=== PATIENT | male | born 1970 | race Caucasian/White ===

== ENCOUNTER 2017-05-04 16:43 | Inpatient (IN) | payer MEDICARE, OTHER ==
[2017-05-04] MEDS ORDERED: ONDANSETRON 4 MG INJ (17:18)
[2017-05-04] MEDS ORDERED: morphine 4 MG/ML VIAL (17:18)
[2017-05-04] MEDS: SODIUM CHLORIDE 0.9% 1L BAG IV* (17:19)
[2017-05-04] MEDS: CEFEPIME 2GM/50 ML (PMX) 50 ML IVPB (17:19)
[2017-05-04] MEDS: morphine 4 MG/ML VIAL IV (17:20)
[2017-05-04] MEDS: ACETAMINOPHEN 500 MG TAB PO (17:21)
[2017-05-04 17:25] LABS: ADD MAN DIFF? NO
[2017-05-04 17:28] LABS: WHITE BLOOD COUNT 23.1 10^3/ul (4.8-10.8)
[2017-05-04 17:28] LABS: ABNORMAL IP MESSAGE 1; BASOPHIL # 0.1 10^3/ul (0.0-0.1); BASOPHILS % 0.3 % (0.0-2.0); EOSINOPHILS # 0.1 10^3/ul (0.0-0.5); EOSINOPHILS % 0.3 % (0.0-7.0); HEMATOCRIT 44.6 % (42.0-52.0); HEMOGLOBIN 15.3 g/dl (14.0-18.0); LYMPHOCYTES # 2.9 10^3/ul (0.8-2.9); LYMPHOCYTES % 12.6 % (15.0-51.0); MEAN CORPUSCULAR HEMOGLOBIN 29.6 pg (29.0-33.0); MEAN CORPUSCULAR HGB CONC 34.3 g/dl (32.0-37.0); MEAN CORPUSCULAR VOLUME 86.3 fl (82.0-101.0); MEAN PLATELET VOLUME 10.9 fl (7.4-10.4); MONOCYTE # 1.7 10^3/ul (0.3-0.9); MONOCYTES % 7.3 % (0.0-11.0); NEUTROPHIL # 18.3 10^3/ul (1.6-7.5); NEUTROPHILS % 79.1 % (39.0-77.0); PLATELET COUNT 290 10^3/UL (140-415); POSITIVE DIFF @See below; RED BLOOD COUNT 5.17 10^6/ul (4.70-6.10); RED CELL DISTRIBUTION WIDTH 15.4 % (11.5-14.5)
[2017-05-04 17:46] LABS: ADD UMIC YES; UR ASCORBIC ACID NEGATIVE (NEGATIVE); UR BACTERIA FEW /HPF (NONE SEEN); UR BILIRUBIN (Dip) NEGATIVE (NEGATIVE); UR BLOOD (Dip) NEGATIVE (NEGATIVE); UR CLARITY CLEAR (CLEAR); UR COLOR YELLOW (YELLOW); UR GLUCOSE (Dip) NEGATIVE (NEGATIVE); UR KETONES (Dip) NEGATIVE (NEGATIVE); UR LEUKOCYTE ESTERASE (Dip) TRACE Leu/ul (NEGATIVE); UR MUCUS FEW /HPF (NONE SEEN); UR NITRITE (Dip) NEGATIVE (NEGATIVE); UR RBC 8 /HPF (0-5); UR SPECIFIC GRAVITY (Dip) 1.016 (1.003-1.030); UR TOTAL PROTEIN (Dip) 1+ mg/dl (NEGATIVE); UR UROBILINOGEN (Dip) 1+ mg/dL (NEGATIVE); UR WBC 26 /HPF (0-5)
[2017-05-04 17:57] LABS: ALANINE AMINOTRANSFERASE 56 IU/L (13-69); ALBUMIN 4.5 g/dl (3.3-4.9); ALBUMIN/GLOBULIN RATIO 1.09; ALKALINE PHOSPHATASE 108 IU/L (42-121); ANION GAP 22 (8-16); ASPARTATE AMINO TRANSFERASE 36 IU/L (15-46); BILIRUBIN,INDIRECT 0.4 mg/dl (0-1.1); BILIRUBIN,TOTAL 0.4 mg/dl (0.2-1.3); BLOOD UREA NITROGEN 10 mg/dl (7-20); CALCIUM 9.7 mg/dl (8.4-10.2); CARBON DIOXIDE 25 mmol/L (21-31); CHLORIDE 99 mmol/L (97-110); CREATININE 0.55 mg/dl (0.61-1.24); GLUCOSE 182 mg/dl (70-220); POTASSIUM 4.1 mmol/L (3.5-5.1); SODIUM 142 mmol/L (135-144); TOTAL PROTEIN 8.6 g/dl (6.1-8.1)
[2017-05-04 18:05] LABS: INR 2.04; PROTIME 23.5 Sec (11.9-14.9); PT RATIO 1.8
[2017-05-04 18:06] LABS: PARTIAL THROMBOPLASTIN TIME 43.9 Sec (25.0-35.0)
[2017-05-04 18:06] LABS: LACTIC ACID 4.4 mmol/L (0.5-2.0)
[2017-05-04 18:09] LABS: TROPONIN-I < 0.012 ng/ml (0.00-0.12)
[2017-05-04 19:37] LABS: LACTIC ACID 2.2 mmol/L (0.5-2.0)
[2017-05-04] MEDS: KETOROLAC 30 MG INJ IV (20:15)
[2017-05-04] MEDS: ASPIRIN 81 MG TAB PO (20:34)
[2017-05-04] MEDS ORDERED: ACETAMINOPHEN 325 MG TAB PO (21:30)
[2017-05-04] MEDS ORDERED: ONDANSETRON 4 MG INJ IV (21:30)
[2017-05-04 22:29] LABS: LACTIC ACID 2.4 mmol/L (0.5-2.0)
[2017-05-05] MEDS ORDERED: ZOLPIDEM 5 MG TAB PO (02:30)
[2017-05-05] MEDS ORDERED: ACETAMINOPHEN 325 MG TAB PO (02:30)
[2017-05-05] MEDS ORDERED: morphine 2 MG INJ (02:58)
[2017-05-05] MEDS: morphine 2 MG INJ IV ×7 (03:02→23:41)
[2017-05-05] MEDS: SOD CHLORIDE 0.9% 1,000 ML IV ×2 (03:08→23:00)
[2017-05-05] MEDS ORDERED: GLUCAGON 1 MG INJ IM (03:30)
[2017-05-05] MEDS ORDERED: DEXTROSE 50% 50 ML SYRINGE IV ×2 (03:30)
[2017-05-05] MEDS ORDERED: GLUCOSE GEL 15 GRAM TUBE BUCCAL (03:30)
[2017-05-05] MEDS ORDERED: GLUCOSE GEL 15 GRAM TUBE PO ×2 (03:30)
[2017-05-05 04:58] LABS: ADD MAN DIFF? NO
[2017-05-05 05:00] LABS: ABNORMAL IP MESSAGE 1; BASOPHIL # 0.1 10^3/ul (0.0-0.1); BASOPHILS % 0.4 % (0.0-2.0); EOSINOPHILS # 0.1 10^3/ul (0.0-0.5); EOSINOPHILS % 0.2 % (0.0-7.0); HEMATOCRIT 39.8 % (42.0-52.0); HEMOGLOBIN 13.6 g/dl (14.0-18.0); LYMPHOCYTES # 5.7 10^3/ul (0.8-2.9); LYMPHOCYTES % 21.1 % (15.0-51.0); MEAN CORPUSCULAR HEMOGLOBIN 29.5 pg (29.0-33.0); MEAN CORPUSCULAR HGB CONC 34.2 g/dl (32.0-37.0); MEAN CORPUSCULAR VOLUME 86.3 fl (82.0-101.0); MEAN PLATELET VOLUME 10.9 fl (7.4-10.4); MONOCYTE # 2.6 10^3/ul (0.3-0.9); MONOCYTES % 9.7 % (0.0-11.0); NEUTROPHIL # 18.3 10^3/ul (1.6-7.5); NEUTROPHILS % 68.1 % (39.0-77.0); PLATELET COUNT 253 10^3/UL (140-415); POSITIVE DIFF @See below; RED BLOOD COUNT 4.61 10^6/ul (4.70-6.10); RED CELL DISTRIBUTION WIDTH 15.7 % (11.5-14.5)
[2017-05-05 05:00] LABS: WHITE BLOOD COUNT 26.8 10^3/ul (4.8-10.8)
[2017-05-05 06:07] LABS: ANION GAP 15 (8-16); BLOOD UREA NITROGEN 11 mg/dl (7-20); CALCIUM 8.5 mg/dl (8.4-10.2); CARBON DIOXIDE 25 mmol/L (21-31); CHLORIDE 106 mmol/L (97-110); CREATININE 0.55 mg/dl (0.61-1.24); GLUCOSE 136 mg/dl (70-220); POTASSIUM 3.8 mmol/L (3.5-5.1); SODIUM 142 mmol/L (135-144)
[2017-05-05] MEDS ORDERED: DOCUSATE SODIUM 100 MG CAP PO (07:00)
[2017-05-05 07:58] LABS: HEMOGLOBIN A1C 6.5 % (0-5.9)
[2017-05-05] MEDS: INSULIN ASPART [NOVOLOG] 3 ML PEN SC ×4 (08:00→20:38)
[2017-05-05] MEDS: GABAPENTIN 400 MG CAP PO ×4 (08:57→20:34)
[2017-05-05] MEDS: CEFEPIME 1GM/50 ML (PMX) 50 ML IVPB ×2 (08:57→20:33)
[2017-05-05] MEDS: ENOXAPARIN 40 MG/0.4 ML SYG SC (08:58)
[2017-05-05] MEDS: ATORVASTATIN 20 MG TAB PO (20:34)
[2017-05-06] MEDS: ACCU-CHEK XX ×2 (02:00)
[2017-05-06] MEDS: PANTOPRAZOLE (EC) 40 MG TAB PO (05:40)
[2017-05-06 06:02] LABS: ABNORMAL IP MESSAGE 1; ADD MAN DIFF? NO; BASOPHIL # 0.1 10^3/ul (0.0-0.1); BASOPHILS % 0.5 % (0.0-2.0); EOSINOPHILS # 0.3 10^3/ul (0.0-0.5); EOSINOPHILS % 2.3 % (0.0-7.0); HEMATOCRIT 42.6 % (42.0-52.0); HEMOGLOBIN 14.2 g/dl (14.0-18.0); LYMPHOCYTES # 5.1 10^3/ul (0.8-2.9); LYMPHOCYTES % 35.1 % (15.0-51.0); MEAN CORPUSCULAR HEMOGLOBIN 29.8 pg (29.0-33.0); MEAN CORPUSCULAR HGB CONC 33.3 g/dl (32.0-37.0); MEAN CORPUSCULAR VOLUME 89.3 fl (82.0-101.0); MEAN PLATELET VOLUME 11.4 fl (7.4-10.4); MONOCYTES % 13.6 % (0.0-11.0); NEUTROPHILS % 48.3 % (39.0-77.0); PLATELET COUNT 266 10^3/UL (140-415); POSITIVE DIFF @See below; RED BLOOD COUNT 4.77 10^6/ul (4.70-6.10); RED CELL DISTRIBUTION WIDTH 15.8 % (11.5-14.5)
[2017-05-06 06:02] LABS: WHITE BLOOD COUNT 14.6 10^3/ul (4.8-10.8)
[2017-05-06] MEDS: morphine 2 MG INJ IV ×2 (06:17→12:17)
[2017-05-06 07:17] LABS: ANION GAP 16 (8-16); BLOOD UREA NITROGEN 10 mg/dl (7-20); CALCIUM 8.9 mg/dl (8.4-10.2); CARBON DIOXIDE 28 mmol/L (21-31); CHLORIDE 106 mmol/L (97-110); CREATININE 0.58 mg/dl (0.61-1.24); GLUCOSE 122 mg/dl (70-220); POTASSIUM 4.2 mmol/L (3.5-5.1); SODIUM 146 mmol/L (135-144)
[2017-05-06] MEDS: INSULIN ASPART [NOVOLOG] 3 ML PEN SC ×4 (08:00→20:41)
[2017-05-06] MEDS: GABAPENTIN 400 MG CAP PO ×4 (09:02→20:37)
[2017-05-06] MEDS: DOCUSATE SODIUM 100 MG CAP PO ×2 (09:02→20:37)
[2017-05-06] MEDS: ENOXAPARIN 40 MG/0.4 ML SYG SC (09:03)
[2017-05-06] MEDS: CEFEPIME 1GM/50 ML (PMX) 50 ML IVPB (09:03)
[2017-05-06 09:42] LABS: HEMOGLOBIN A1C 6.1 % (0-5.9)
[2017-05-06] MEDS: SOD CHLORIDE 0.9% 1,000 ML IV ×2 (11:50→15:43)
[2017-05-06] MEDS: CEFTRIAXONE 1 GM/50 ML (PMX) 50 ML IVPB (17:25)
[2017-05-06] MEDS: morphine LIQ (10 MG/5 ML) CUP PO (18:37)
[2017-05-06] MEDS: ATORVASTATIN 20 MG TAB PO (20:37)
[2017-05-07] MEDS: morphine LIQ (10 MG/5 ML) CUP PO ×5 (00:10→21:01)
[2017-05-07] MEDS: ACCU-CHEK XX ×2 (02:00)
[2017-05-07] MEDS: PANTOPRAZOLE (EC) 40 MG TAB PO (05:57)
[2017-05-07 06:02] LABS: ADD MAN DIFF? NO
[2017-05-07 06:19] LABS: ABNORMAL IP MESSAGE 1; BASOPHIL # 0.1 10^3/ul (0.0-0.1); BASOPHILS % 0.5 % (0.0-2.0); EOSINOPHILS # 0.4 10^3/ul (0.0-0.5); EOSINOPHILS % 3.4 % (0.0-7.0); HEMATOCRIT 42.9 % (42.0-52.0); HEMOGLOBIN 14.3 g/dl (14.0-18.0); LYMPHOCYTES # 4.9 10^3/ul (0.8-2.9); MEAN CORPUSCULAR HEMOGLOBIN 29.7 pg (29.0-33.0); MEAN CORPUSCULAR HGB CONC 33.3 g/dl (32.0-37.0); MEAN PLATELET VOLUME 11.1 fl (7.4-10.4); MONOCYTE # 1.6 10^3/ul (0.3-0.9); NEUTROPHIL # 5.2 10^3/ul (1.6-7.5); NEUTROPHILS % 42.9 % (39.0-77.0); PLATELET COUNT 298 10^3/UL (140-415); POSITIVE DIFF @See below; RED BLOOD COUNT 4.82 10^6/ul (4.70-6.10); RED CELL DISTRIBUTION WIDTH 15.9 % (11.5-14.5)
[2017-05-07 06:19] LABS: WHITE BLOOD COUNT 12.2 10^3/ul (4.8-10.8)
[2017-05-07 06:51] LABS: ANION GAP 16 (8-16); BLOOD UREA NITROGEN 9 mg/dl (7-20); CARBON DIOXIDE 29 mmol/L (21-31); CHLORIDE 103 mmol/L (97-110); CREATININE 0.58 mg/dl (0.61-1.24); GLUCOSE 122 mg/dl (70-220); POTASSIUM 3.9 mmol/L (3.5-5.1); SODIUM 144 mmol/L (135-144)
[2017-05-07] MEDS: INSULIN ASPART [NOVOLOG] 3 ML PEN SC ×4 (07:55→21:00)
[2017-05-07] MEDS: GABAPENTIN 400 MG CAP PO ×4 (08:32→21:03)
[2017-05-07] MEDS: DOCUSATE SODIUM 100 MG CAP PO ×2 (08:32→21:02)
[2017-05-07] MEDS: ENOXAPARIN 40 MG/0.4 ML SYG SC (08:33)
[2017-05-07] MEDS: SOD CHLORIDE 0.9% 1,000 ML IV (10:36)
[2017-05-07] MEDS: CEFTRIAXONE 1 GM/50 ML (PMX) 50 ML IVPB (16:00)
[2017-05-07] MEDS: MAGNESIUM HYDROXIDE 30ML CUP PO (17:59)
[2017-05-07] MEDS: ATORVASTATIN 20 MG TAB PO (21:03)
[2017-05-08] MEDS: ACCU-CHEK XX ×2 (02:00)
[2017-05-08] MEDS: morphine LIQ (10 MG/5 ML) CUP PO ×5 (02:11→20:54)
[2017-05-08] MEDS: MAGNESIUM HYDROXIDE 30ML CUP PO (05:15)
[2017-05-08] MEDS: SOD CHLORIDE 0.9% 1,000 ML IV (05:15)
[2017-05-08] MEDS: PANTOPRAZOLE (EC) 40 MG TAB PO (05:15)
[2017-05-08 05:53] LABS: ADD MAN DIFF? NO
[2017-05-08 05:57] LABS: BASOPHIL # 0.1 10^3/ul (0.0-0.1); BASOPHILS % 0.6 % (0.0-2.0); EOSINOPHILS # 0.4 10^3/ul (0.0-0.5); EOSINOPHILS % 3.8 % (0.0-7.0); HEMATOCRIT 44.4 % (42.0-52.0); LYMPHOCYTES # 4.4 10^3/ul (0.8-2.9); LYMPHOCYTES % 44.6 % (15.0-51.0); MEAN CORPUSCULAR HEMOGLOBIN 29.5 pg (29.0-33.0); MEAN CORPUSCULAR HGB CONC 33.8 g/dl (32.0-37.0); MEAN CORPUSCULAR VOLUME 87.4 fl (82.0-101.0); MEAN PLATELET VOLUME 11.1 fl (7.4-10.4); MONOCYTES % 10.3 % (0.0-11.0); NEUTROPHILS % 40.6 % (39.0-77.0); PLATELET COUNT 329 10^3/UL (140-415); RED BLOOD COUNT 5.08 10^6/ul (4.70-6.10); RED CELL DISTRIBUTION WIDTH 15.5 % (11.5-14.5)
[2017-05-08 06:48] LABS: ANION GAP 17 (8-16); BLOOD UREA NITROGEN 11 mg/dl (7-20); CALCIUM 9.2 mg/dl (8.4-10.2); CARBON DIOXIDE 29 mmol/L (21-31); CHLORIDE 102 mmol/L (97-110); CREATININE 0.56 mg/dl (0.61-1.24); GLUCOSE 125 mg/dl (70-220); POTASSIUM 4.2 mmol/L (3.5-5.1); SODIUM 144 mmol/L (135-144)
[2017-05-08] MEDS: INSULIN ASPART [NOVOLOG] 3 ML PEN SC ×4 (08:00→21:00)
[2017-05-08] MEDS: GABAPENTIN 400 MG CAP PO ×4 (08:44→20:54)
[2017-05-08] MEDS: DOCUSATE SODIUM 100 MG CAP PO ×2 (08:44→20:54)
[2017-05-08] MEDS: ENOXAPARIN 40 MG/0.4 ML SYG SC (08:45)
[2017-05-08] MEDS: CEFTRIAXONE 1 GM/50 ML (PMX) 50 ML IVPB (16:37)
[2017-05-08] MEDS: ATORVASTATIN 20 MG TAB PO (20:54)
[2017-05-09] MEDS: ACCU-CHEK XX ×2 (02:00)
[2017-05-09] MEDS: SOD CHLORIDE 0.9% 1,000 ML IV (03:28)
[2017-05-09] MEDS: PANTOPRAZOLE (EC) 40 MG TAB PO (05:29)
[2017-05-09 07:14] LABS: ADD MAN DIFF? NO
[2017-05-09 07:24] LABS: BASOPHIL # 0.1 10^3/ul (0.0-0.1); BASOPHILS % 0.6 % (0.0-2.0); EOSINOPHILS # 0.5 10^3/ul (0.0-0.5); EOSINOPHILS % 5.8 % (0.0-7.0); HEMATOCRIT 46.1 % (42.0-52.0); HEMOGLOBIN 15.5 g/dl (14.0-18.0); LYMPHOCYTES # 4.2 10^3/ul (0.8-2.9); LYMPHOCYTES % 49.4 % (15.0-51.0); MEAN CORPUSCULAR HEMOGLOBIN 29.4 pg (29.0-33.0); MEAN CORPUSCULAR HGB CONC 33.6 g/dl (32.0-37.0); MEAN CORPUSCULAR VOLUME 87.5 fl (82.0-101.0); MEAN PLATELET VOLUME 11.5 fl (7.4-10.4); MONOCYTES % 11.9 % (0.0-11.0); NEUTROPHIL # 2.7 10^3/ul (1.6-7.5); NEUTROPHILS % 32.1 % (39.0-77.0); PLATELET COUNT 302 10^3/UL (140-415); RED BLOOD COUNT 5.27 10^6/ul (4.70-6.10)
[2017-05-09 07:24] LABS: WHITE BLOOD COUNT 8.4 10^3/ul (4.8-10.8)
[2017-05-09 07:54] LABS: ANION GAP 19 (8-16); BLOOD UREA NITROGEN 14 mg/dl (7-20); CALCIUM 9.1 mg/dl (8.4-10.2); CARBON DIOXIDE 22 mmol/L (21-31); CHLORIDE 105 mmol/L (97-110); CREATININE 0.51 mg/dl (0.61-1.24); GLUCOSE 112 mg/dl (70-220); SODIUM 141 mmol/L (135-144)
[2017-05-09] MEDS: INSULIN ASPART [NOVOLOG] 3 ML PEN SC ×4 (08:00→21:00)
[2017-05-09] MEDS: DOCUSATE SODIUM 100 MG CAP PO ×2 (09:07→20:05)
[2017-05-09] MEDS: ENOXAPARIN 40 MG/0.4 ML SYG SC (09:07)
[2017-05-09] MEDS: GABAPENTIN 400 MG CAP PO ×4 (09:07→20:05)
[2017-05-09] MEDS: morphine LIQ (10 MG/5 ML) CUP PO ×3 (09:10→20:05)
[2017-05-09] MEDS: CEFTRIAXONE 1 GM/50 ML (PMX) 50 ML IVPB (17:33)
[2017-05-09] MEDS: ATORVASTATIN 20 MG TAB PO (20:05)
[2017-05-10] MEDS: ACCU-CHEK XX ×2 (02:00)
[2017-05-10] MEDS: morphine LIQ (10 MG/5 ML) CUP PO ×3 (03:26→14:31)
[2017-05-10] MEDS: PANTOPRAZOLE (EC) 40 MG TAB PO (05:45)
[2017-05-10] MEDS: SOD CHLORIDE 0.9% 1,000 ML IV ×2 (05:45→15:50)
[2017-05-10] MEDS: INSULIN ASPART [NOVOLOG] 3 ML PEN SC ×3 (07:57→17:20)
[2017-05-10] MEDS: GABAPENTIN 400 MG CAP PO ×3 (08:47→17:21)
[2017-05-10] MEDS: ENOXAPARIN 40 MG/0.4 ML SYG SC (08:47)
[2017-05-10] MEDS: DOCUSATE SODIUM 100 MG CAP PO (08:47)
[2017-05-10] MEDS: CEFTRIAXONE 1 GM/50 ML (PMX) 50 ML IVPB (17:21)
== END 2017-05-10 18:46 | disposition home or self-care (01) | DRG 872 ==
LOC: PP2 05-09 18:31 → E/R 16:43 → PP2 21:15
DX: A41.9 Sepsis, unspecified organism (principal); G82.20 Paraplegia, unspecified; N39.0 Urinary tract infection, site not specified; N31.9 Neuromuscular dysfunction of bladder, unspecified; E11.9 Type 2 diabetes mellitus without complications; B96.20 Unspecified Escherichia coli [E. coli] as the cause of diseases classified elsewhere; Z86.718 Personal history of other venous thrombosis and embolism; E86.0 Dehydration
CPT/HCPCS: 36415; 71045; 71250; 80048; 80053; 81001; 82962; 83036; 83605; 84484; 85025; 85610; 85730; 87040; 87086; 93005; 96374; 96375; 99291-25

== ENCOUNTER 2017-11-29 17:29 | Inpatient (IN) | payer MEDICARE, OTHER ==
[2017-11-29] MEDS ORDERED: CEFTRIAXONE 1 GM/50 ML (PMX) 50 ML IVPB (18:08)
[2017-11-29] MEDS ORDERED: ACETAMINOPHEN 325 MG TAB (18:17)
[2017-11-29] MEDS ORDERED: KETOROLAC 15 MG INJ (18:17)
[2017-11-29 18:30] LABS: ADD UMIC YES; UR ASCORBIC ACID NEGATIVE (NEGATIVE); UR BACTERIA FEW /HPF (NONE SEEN); UR BILIRUBIN (Dip) NEGATIVE (NEGATIVE); UR BLOOD (Dip) NEGATIVE (NEGATIVE); UR CLARITY CLEAR (CLEAR); UR COLOR STRAW (YELLOW); UR GLUCOSE (Dip) NEGATIVE (NEGATIVE); UR KETONES (Dip) NEGATIVE (NEGATIVE); UR LEUKOCYTE ESTERASE (Dip) 1+ Leu/ul (NEGATIVE); UR NITRITE (Dip) NEGATIVE (NEGATIVE); UR RBC 1 /HPF (0-5); UR SPECIFIC GRAVITY (Dip) 1.011 (1.003-1.030); UR TOTAL PROTEIN (Dip) NEGATIVE (NEGATIVE); UR UROBILINOGEN (Dip) NEGATIVE (NEGATIVE); UR WBC 56 /HPF (0-5)
[2017-11-29] MEDS: SODIUM CHLORIDE 0.9% 1L BAG IV* (18:32)
[2017-11-29] MEDS: KETOROLAC 15 MG INJ IV (18:33)
[2017-11-29 18:55] LABS: ADD MAN DIFF? NO
[2017-11-29] MEDS: ACETAMINOPHEN 500 MG TAB PO (18:56)
[2017-11-29 19:01] LABS: WHITE BLOOD COUNT 22.6 10^3/ul (4.8-10.8)
[2017-11-29 19:01] LABS: ABNORMAL IP MESSAGE 1; BASOPHIL # 0.1 10^3/ul (0.0-0.1); BASOPHILS % 0.3 % (0.0-2.0); EOSINOPHILS # 0.1 10^3/ul (0.0-0.5); EOSINOPHILS % 0.4 % (0.0-7.0); HEMATOCRIT 43.9 % (42.0-52.0); HEMOGLOBIN 14.3 g/dl (14.0-18.0); LYMPHOCYTES # 4.5 10^3/ul (0.8-2.9); LYMPHOCYTES % 19.7 % (15.0-51.0); MEAN CORPUSCULAR HEMOGLOBIN 28.7 pg (29.0-33.0); MEAN CORPUSCULAR HGB CONC 32.6 g/dl (32.0-37.0); MEAN CORPUSCULAR VOLUME 88.2 fl (82.0-101.0); MEAN PLATELET VOLUME 10.9 fl (7.4-10.4); MONOCYTES % 8.9 % (0.0-11.0); NEUTROPHIL # 15.8 10^3/ul (1.6-7.5); NEUTROPHILS % 70.3 % (39.0-77.0); PLATELET COUNT 312 10^3/UL (140-415); RED BLOOD COUNT 4.98 10^6/ul (4.70-6.10); RED CELL DISTRIBUTION WIDTH 15.9 % (11.5-14.5)
[2017-11-29 19:16] LABS: INR 1.02; PROTIME 13.5 Sec (11.9-14.9); PT RATIO 1.1
[2017-11-29 19:17] LABS: ALANINE AMINOTRANSFERASE 47 IU/L (13-69); ALBUMIN 4.2 g/dl (3.3-4.9); ALBUMIN/GLOBULIN RATIO 0.95; ALKALINE PHOSPHATASE 101 IU/L (42-121); ANION GAP 13 (8-16); ASPARTATE AMINO TRANSFERASE 34 IU/L (15-46); BILIRUBIN,INDIRECT 0.4 mg/dl (0-1.1); BILIRUBIN,TOTAL 0.4 mg/dl (0.2-1.3); BLOOD UREA NITROGEN 12 mg/dl (7-20); CALCIUM 9.3 mg/dl (8.4-10.2); CARBON DIOXIDE 28 mmol/L (21-31); CHLORIDE 102 mmol/L (97-110); CREATININE 0.55 mg/dl (0.61-1.24); GLUCOSE 100 mg/dl (70-220); LIPASE 66 U/L (23-300); PARTIAL THROMBOPLASTIN TIME 34.1 Sec (25.0-35.0); POTASSIUM 3.9 mmol/L (3.5-5.1); SODIUM 139 mmol/L (135-144); TOTAL PROTEIN 8.6 g/dl (6.1-8.1)
[2017-11-29 19:21] LABS: LACTIC ACID 1.4 mmol/L (0.5-2.0)
[2017-11-29] MEDS: ONDANSETRON 4 MG INJ IV (19:27)
[2017-11-29] MEDS: morphine 4 MG/ML VIAL IV (19:27)
[2017-11-29 19:29] LABS: TROPONIN-I < 0.012 ng/ml (0.000-0.120)
[2017-11-29] MEDS: CEFEPIME 2GM/50 ML (PMX) 50 ML IVPB (19:44)
[2017-11-29] MEDS: KETOROLAC 30 MG INJ IV (22:01)
[2017-11-29] MEDS: CEFEPIME 1GM/50 ML (PMX) 50 ML IVPB (23:14)
[2017-11-29] MEDS ORDERED: DEXTROSE 50% 50 ML SYRINGE IV ×2 (23:45)
[2017-11-29] MEDS ORDERED: GLUCOSE GEL 15 GRAM TUBE PO ×2 (23:45)
[2017-11-29] MEDS ORDERED: GLUCOSE GEL 15 GRAM TUBE BUCCAL (23:45)
[2017-11-29] MEDS ORDERED: GLUCAGON 1 MG INJ IM (23:45)
[2017-11-29 23:46] LABS: LACTIC ACID 1.5 mmol/L (0.5-2.0)
[2017-11-30] MEDS: NS + KCL 20 MEQ 1,000 ML IV ×2 (03:24→12:15)
[2017-11-30 07:06] LABS: HEMOGLOBIN A1C 6.6 % (0-5.9)
[2017-11-30] MEDS: KETOROLAC 30 MG INJ IV ×2 (07:40→17:50)
[2017-11-30] MEDS: INSULIN ASPART [NOVOLOG] 3 ML PEN SC ×4 (08:00→20:48)
[2017-11-30] MEDS ORDERED: CEFEPIME 1GM/50 ML (PMX) 50 ML IVPB (09:00)
[2017-11-30] MEDS: CEFEPIME 1GM/50 ML (PMX) 50 ML IVPB ×2 (09:04→20:38)
[2017-11-30] MEDS: metFORMIN 500 MG TAB PO ×2 (09:05→17:50)
[2017-11-30] MEDS: GABAPENTIN 400 MG CAP PO ×4 (09:05→20:38)
[2017-11-30] MEDS: ACETAMINOPHEN 500 MG TAB PO (11:34)
[2017-11-30] MEDS: ATORVASTATIN 20 MG TAB PO (20:38)
[2017-12-01] MEDS: KETOROLAC 30 MG INJ IV (04:21)
[2017-12-01 06:10] LABS: ADD MAN DIFF? NO
[2017-12-01 06:18] LABS: WHITE BLOOD COUNT 11.2 10^3/ul (4.8-10.8)
[2017-12-01 06:18] LABS: BASOPHIL # 0.1 10^3/ul (0.0-0.1); BASOPHILS % 0.5 % (0.0-2.0); EOSINOPHILS # 0.4 10^3/ul (0.0-0.5); EOSINOPHILS % 3.3 % (0.0-7.0); HEMATOCRIT 42.1 % (42.0-52.0); HEMOGLOBIN 13.7 g/dl (14.0-18.0); LYMPHOCYTES # 4.5 10^3/ul (0.8-2.9); LYMPHOCYTES % 39.8 % (15.0-51.0); MEAN CORPUSCULAR HEMOGLOBIN 29.3 pg (29.0-33.0); MEAN CORPUSCULAR HGB CONC 32.5 g/dl (32.0-37.0); MEAN CORPUSCULAR VOLUME 90.1 fl (82.0-101.0); MEAN PLATELET VOLUME 11.4 fl (7.4-10.4); MONOCYTE # 1.5 10^3/ul (0.3-0.9); MONOCYTES % 12.9 % (0.0-11.0); NEUTROPHIL # 4.9 10^3/ul (1.6-7.5); NEUTROPHILS % 43.2 % (39.0-77.0); PLATELET COUNT 304 10^3/UL (140-415); RED BLOOD COUNT 4.67 10^6/ul (4.70-6.10); RED CELL DISTRIBUTION WIDTH 16.2 % (11.5-14.5)
[2017-12-01] MEDS: NS + KCL 20 MEQ 1,000 ML IV ×3 (06:41→18:31)
[2017-12-01 06:42] LABS: ANION GAP 12 (8-16); BLOOD UREA NITROGEN 11 mg/dl (7-20); CALCIUM 8.9 mg/dl (8.4-10.2); CARBON DIOXIDE 26 mmol/L (21-31); CHLORIDE 108 mmol/L (97-110); CREATININE 0.48 mg/dl (0.61-1.24); GLUCOSE 106 mg/dl (70-220); POTASSIUM 4.3 mmol/L (3.5-5.1); SODIUM 142 mmol/L (135-144)
[2017-12-01] MEDS: INSULIN ASPART [NOVOLOG] 3 ML PEN SC ×4 (07:47→21:00)
[2017-12-01] MEDS: metFORMIN 500 MG TAB PO ×2 (07:48→17:14)
[2017-12-01] MEDS: CEFEPIME 1GM/50 ML (PMX) 50 ML IVPB ×2 (09:08→20:45)
[2017-12-01] MEDS: GABAPENTIN 400 MG CAP PO ×4 (09:08→20:45)
[2017-12-01] MEDS ORDERED: GUAIFENESIN/CODEINE 5ML CUP PO (20:00)
[2017-12-01] MEDS: ATORVASTATIN 20 MG TAB PO (20:45)
[2017-12-01] MEDS: GUAIFENESIN 20 MG/ML 5ML CUP PO (22:54)
[2017-12-02] MEDS: NS + KCL 20 MEQ 1,000 ML IV ×2 (01:30→10:24)
[2017-12-02] MEDS: INSULIN ASPART [NOVOLOG] 3 ML PEN SC ×4 (07:35→20:29)
[2017-12-02] MEDS: CEFEPIME 1GM/50 ML (PMX) 50 ML IVPB ×2 (08:06→20:28)
[2017-12-02] MEDS: GABAPENTIN 400 MG CAP PO ×4 (08:06→20:28)
[2017-12-02] MEDS: metFORMIN 500 MG TAB PO ×2 (08:06→17:00)
[2017-12-02] MEDS: GUAIFENESIN 20 MG/ML 5ML CUP PO ×2 (09:34→20:29)
[2017-12-02] MEDS: KETOROLAC 30 MG INJ IV (11:53)
[2017-12-02 14:07] LABS: ADD MAN DIFF? NO
[2017-12-02 14:10] LABS: WHITE BLOOD COUNT 14.1 10^3/ul (4.8-10.8)
[2017-12-02 14:10] LABS: ABNORMAL IP MESSAGE 1; BASOPHIL # 0.1 10^3/ul (0.0-0.1); BASOPHILS % 0.4 % (0.0-2.0); EOSINOPHILS # 0.3 10^3/ul (0.0-0.5); EOSINOPHILS % 1.9 % (0.0-7.0); HEMATOCRIT 42.5 % (42.0-52.0); HEMOGLOBIN 14.1 g/dl (14.0-18.0); LYMPHOCYTES # 4.3 10^3/ul (0.8-2.9); LYMPHOCYTES % 30.2 % (15.0-51.0); MEAN CORPUSCULAR HEMOGLOBIN 29.4 pg (29.0-33.0); MEAN CORPUSCULAR HGB CONC 33.2 g/dl (32.0-37.0); MEAN CORPUSCULAR VOLUME 88.7 fl (82.0-101.0); MEAN PLATELET VOLUME 11.5 fl (7.4-10.4); MONOCYTE # 1.5 10^3/ul (0.3-0.9); MONOCYTES % 10.9 % (0.0-11.0); NEUTROPHIL # 7.9 10^3/ul (1.6-7.5); NEUTROPHILS % 56.3 % (39.0-77.0); PLATELET COUNT 334 10^3/UL (140-415); POSITIVE DIFF @See below; RED BLOOD COUNT 4.79 10^6/ul (4.70-6.10); RED CELL DISTRIBUTION WIDTH 15.9 % (11.5-14.5)
[2017-12-02] MEDS: ATORVASTATIN 20 MG TAB PO (20:28)
[2017-12-02] MEDS: KETOROLAC 15 MG INJ IV (20:29)
[2017-12-03] MEDS: NS + KCL 20 MEQ 1,000 ML IV ×2 (02:23→14:33)
[2017-12-03 06:58] LABS: ANION GAP 11 (8-16); BLOOD UREA NITROGEN 12 mg/dl (7-20); CALCIUM 8.9 mg/dl (8.4-10.2); CARBON DIOXIDE 27 mmol/L (21-31); CHLORIDE 108 mmol/L (97-110); CREATININE 0.54 mg/dl (0.61-1.24); GLUCOSE 105 mg/dl (70-220); POTASSIUM 4.2 mmol/L (3.5-5.1); SODIUM 142 mmol/L (135-144)
[2017-12-03] MEDS: INSULIN ASPART [NOVOLOG] 3 ML PEN SC ×4 (07:24→21:00)
[2017-12-03] MEDS: CEFEPIME 1GM/50 ML (PMX) 50 ML IVPB ×2 (08:13→21:10)
[2017-12-03] MEDS: metFORMIN 500 MG TAB PO ×2 (08:13→17:01)
[2017-12-03] MEDS: GABAPENTIN 400 MG CAP PO ×4 (08:13→21:11)
[2017-12-03] MEDS: DOCUSATE SODIUM 100 MG CAP PO ×2 (08:21→21:11)
[2017-12-03] MEDS: ACETAMINOPHEN 500 MG TAB PO (08:21)
[2017-12-03] MEDS: GUAIFENESIN 20 MG/ML 5ML CUP PO ×2 (11:25→21:11)
[2017-12-03] MEDS ORDERED: NA PHOSPHATE/BIPHOS 133 ML ENEMA PR (14:30)
[2017-12-03] MEDS: BISACODYL (EC) 5 MG TAB PO (14:39)
[2017-12-03 14:46] LABS: MAGNESIUM 1.7 mg/dl (1.7-2.5)
[2017-12-03] MEDS: KETOROLAC 15 MG INJ IV ×2 (17:13→21:11)
[2017-12-03] MEDS: ATORVASTATIN 20 MG TAB PO (21:11)
[2017-12-04] MEDS: NS + KCL 20 MEQ 1,000 ML IV ×2 (04:09→16:00)
[2017-12-04 06:18] LABS: ADD MAN DIFF? NO
[2017-12-04 06:21] LABS: WHITE BLOOD COUNT 10.3 10^3/ul (4.8-10.8)
[2017-12-04 06:21] LABS: BASOPHIL # 0.1 10^3/ul (0.0-0.1); BASOPHILS % 0.7 % (0.0-2.0); EOSINOPHILS # 0.6 10^3/ul (0.0-0.5); EOSINOPHILS % 5.4 % (0.0-7.0); HEMATOCRIT 42.9 % (42.0-52.0); HEMOGLOBIN 14.3 g/dl (14.0-18.0); LYMPHOCYTES # 4.1 10^3/ul (0.8-2.9); LYMPHOCYTES % 39.6 % (15.0-51.0); MEAN CORPUSCULAR HEMOGLOBIN 29.8 pg (29.0-33.0); MEAN CORPUSCULAR HGB CONC 33.3 g/dl (32.0-37.0); MEAN CORPUSCULAR VOLUME 89.4 fl (82.0-101.0); MEAN PLATELET VOLUME 10.8 fl (7.4-10.4); MONOCYTE # 1.2 10^3/ul (0.3-0.9); MONOCYTES % 11.8 % (0.0-11.0); NEUTROPHIL # 4.4 10^3/ul (1.6-7.5); NEUTROPHILS % 42.3 % (39.0-77.0); PLATELET COUNT 350 10^3/UL (140-415); RED CELL DISTRIBUTION WIDTH 15.6 % (11.5-14.5)
[2017-12-04 06:38] LABS: ANION GAP 12 (8-16); BLOOD UREA NITROGEN 14 mg/dl (7-20); CALCIUM 8.8 mg/dl (8.4-10.2); CARBON DIOXIDE 26 mmol/L (21-31); CHLORIDE 108 mmol/L (97-110); CREATININE 0.59 mg/dl (0.61-1.24); GLUCOSE 105 mg/dl (70-220); POTASSIUM 4.3 mmol/L (3.5-5.1); SODIUM 142 mmol/L (135-144)
[2017-12-04] MEDS: INSULIN ASPART [NOVOLOG] 3 ML PEN SC ×3 (07:42→18:00)
[2017-12-04] MEDS: metFORMIN 500 MG TAB PO ×2 (07:42→18:47)
[2017-12-04] MEDS: DOCUSATE SODIUM 100 MG CAP PO (09:06)
[2017-12-04] MEDS: GABAPENTIN 400 MG CAP PO ×3 (09:06→18:47)
[2017-12-04] MEDS: CEFEPIME 1GM/50 ML (PMX) 50 ML IVPB (09:07)
[2017-12-04] MEDS: KETOROLAC 15 MG INJ IV (13:06)
[2017-12-04] MEDS: CEPHALEXIN 500 MG CAP PO (15:17)
== END 2017-12-04 19:56 | disposition home or self-care (01) | DRG 872 ==
LOC: 6WM 19:27 → E/R 17:29
DX: A41.9 Sepsis, unspecified organism (principal); N10 Acute pyelonephritis; G82.20 Paraplegia, unspecified; I10 Essential (primary) hypertension; N31.9 Neuromuscular dysfunction of bladder, unspecified; E11.42 Type 2 diabetes mellitus with diabetic polyneuropathy; Z86.718 Personal history of other venous thrombosis and embolism; Z79.84 Long term (current) use of oral hypoglycemic drugs
CPT/HCPCS: 70490; 71045; 74176; 80048; 80053; 81001; 82962; 83036; 83605; 83690; 83735; 84484; 85025; 85610; 85730; 87040; 87086; 96374; 96375; 99291-25

== ENCOUNTER 2018-07-08 07:58 | Inpatient (IN) | payer MEDICARE, OTHER ==
[2018-07-08] MEDS: SOD CHLORIDE 0.9% 1,000 ML IV ×5 (08:50→22:08)
[2018-07-08] MEDS: morphine 4 MG/ML VIAL IV (08:51)
[2018-07-08] MEDS: ONDANSETRON 4 MG INJ IV (08:51)
[2018-07-08] MEDS: LORAZEPAM 2 MG INJ IV ×2 (08:51→13:21)
[2018-07-08 09:15] LABS: ADD MAN DIFF? NO
[2018-07-08 09:19] LABS: WHITE BLOOD COUNT 20.7 10^3/ul (4.8-10.8)
[2018-07-08 09:19] LABS: BASOPHILS % 0.2 % (0.0-2.0); HEMATOCRIT 40.8 % (42.0-52.0); HEMOGLOBIN 13.6 g/dl (14.0-18.0); LYMPHOCYTES # 4.3 10^3/ul (0.8-2.9); LYMPHOCYTES % 20.7 % (15.0-51.0); MEAN CORPUSCULAR HEMOGLOBIN 30.6 pg (29.0-33.0); MEAN CORPUSCULAR HGB CONC 33.3 g/dl (32.0-37.0); MEAN CORPUSCULAR VOLUME 91.7 fl (82.0-101.0); MEAN PLATELET VOLUME 11.7 fl (7.4-10.4); MONOCYTE # 1.4 10^3/ul (0.3-0.9); MONOCYTES % 6.8 % (0.0-11.0); NEUTROPHIL # 14.9 10^3/ul (1.6-7.5); PLATELET COUNT 224 10^3/UL (140-415); RED BLOOD COUNT 4.45 10^6/ul (4.70-6.10); RED CELL DISTRIBUTION WIDTH 16.5 % (11.5-14.5)
[2018-07-08 09:22] LABS: ADD UMIC YES; UR ASCORBIC ACID NEGATIVE (NEGATIVE); UR BILIRUBIN (Dip) NEGATIVE (NEGATIVE); UR BLOOD (Dip) NEGATIVE (NEGATIVE); UR CLARITY SLIGHTLY CLOUDY (CLEAR); UR COLOR YELLOW (YELLOW); UR GLUCOSE (Dip) NEGATIVE (NEGATIVE); UR KETONES (Dip) TRACE mg/dL (NEGATIVE); UR LEUKOCYTE ESTERASE (Dip) 1+ Leu/ul (NEGATIVE); UR NITRITE (Dip) NEGATIVE (NEGATIVE); UR RBC 2 /HPF (0-5); UR SPECIFIC GRAVITY (Dip) 1.018 (1.003-1.030); UR TOTAL PROTEIN (Dip) NEGATIVE (NEGATIVE); UR UROBILINOGEN (Dip) NEGATIVE (NEGATIVE); UR WBC 43 /HPF (0-5)
[2018-07-08 09:43] LABS: ALANINE AMINOTRANSFERASE 38 IU/L (13-69); ALBUMIN 4.3 g/dl (3.3-4.9); ALBUMIN/GLOBULIN RATIO 1.43; ALKALINE PHOSPHATASE 89 IU/L (42-121); ANION GAP 10 (5-13); ASPARTATE AMINO TRANSFERASE 24 IU/L (15-46); BILIRUBIN,INDIRECT 0.8 mg/dl (0-1.1); BILIRUBIN,TOTAL 0.8 mg/dl (0.2-1.3); BLOOD UREA NITROGEN 11 mg/dl (7-20); CALCIUM 9.5 mg/dl (8.4-10.2); CARBON DIOXIDE 29 mmol/L (21-31); CHLORIDE 99 mmol/L (97-110); CREATININE 0.51 mg/dl (0.61-1.24); Estimated GFR > 60 mL/min (>60); GLUCOSE 133 mg/dl (70-220); LIPASE 42 U/L (23-300); POTASSIUM 3.7 mmol/L (3.5-5.1); SODIUM 138 mmol/L (135-144); TOTAL PROTEIN 7.3 g/dl (6.1-8.1)
[2018-07-08 09:55] LABS: TROPONIN-I < 0.012 ng/ml (0.000-0.120)
[2018-07-08] MEDS: HYDROmorphONE 1 MG/ML SYG IV (09:59)
[2018-07-08] MEDS ORDERED: NACL 0.9% 3 ML SYG IV (11:00)
[2018-07-08] MEDS ORDERED: ACETAMINOPHEN 325 MG TAB PO (11:00)
[2018-07-08] MEDS: CEFTRIAXONE 1 GM/50 ML (PMX) 50 ML IVPB (11:17)
[2018-07-08] MEDS: ENOXAPARIN 40 MG/0.4 ML SYG SC (11:18)
[2018-07-08] MEDS ORDERED: ALPRAZOLAM 0.5 MG TAB PO (11:30)
[2018-07-08 12:01] LABS: LACTIC ACID 1.7 mmol/L (0.5-2.0)
[2018-07-08] MEDS: HYDROCODONE/APAP (5/325) TAB PO ×2 (13:21→22:15)
[2018-07-08] MEDS: GABAPENTIN 300 MG CAP PO ×2 (13:33→22:14)
[2018-07-08] MEDS: LOSARTAN 50 MG TAB PO (13:34)
[2018-07-08] MEDS: glipiZIDE 5 MG TAB PO ×2 (13:47→23:24)
[2018-07-08] MEDS: PIPER-TAZO 3.375 GM IV (PMX) 100 ML IVPB ×2 (13:53→22:18)
[2018-07-08] MEDS: ATORVASTATIN 20 MG TAB PO (22:13)
[2018-07-08] MEDS: BACLOFEN 10 MG TAB PO (22:14)
[2018-07-08] MEDS: ZOLPIDEM 5 MG TAB PO (23:25)
[2018-07-09] MEDS: SOD CHLORIDE 0.9% 1,000 ML IV ×5 (02:59→23:46)
[2018-07-09] MEDS: PIPER-TAZO 3.375 GM IV (PMX) 100 ML IVPB ×3 (05:39→21:39)
[2018-07-09 05:48] LABS: ADD MAN DIFF? NO
[2018-07-09 05:50] LABS: WHITE BLOOD COUNT 22.7 10^3/ul (4.8-10.8)
[2018-07-09 05:50] LABS: ABNORMAL IP MESSAGE 1; BASOPHIL # 0.1 10^3/ul (0.0-0.1); BASOPHILS % 0.2 % (0.0-2.0); HEMATOCRIT 42.5 % (42.0-52.0); LYMPHOCYTES # 4.5 10^3/ul (0.8-2.9); LYMPHOCYTES % 19.6 % (15.0-51.0); MEAN CORPUSCULAR HEMOGLOBIN 29.9 pg (29.0-33.0); MEAN CORPUSCULAR HGB CONC 32.9 g/dl (32.0-37.0); MEAN CORPUSCULAR VOLUME 90.8 fl (82.0-101.0); MEAN PLATELET VOLUME 10.9 fl (7.4-10.4); MONOCYTE # 1.9 10^3/ul (0.3-0.9); MONOCYTES % 8.1 % (0.0-11.0); NEUTROPHIL # 16.2 10^3/ul (1.6-7.5); NEUTROPHILS % 71.4 % (39.0-77.0); PLATELET COUNT 248 10^3/UL (140-415); POSITIVE DIFF @See below; RED BLOOD COUNT 4.68 10^6/ul (4.70-6.10); RED CELL DISTRIBUTION WIDTH 17.1 % (11.5-14.5)
[2018-07-09 06:27] LABS: ANION GAP 6 (5-13); BLOOD UREA NITROGEN 8 mg/dl (7-20); CALCIUM 9.2 mg/dl (8.4-10.2); CARBON DIOXIDE 29 mmol/L (21-31); CHLORIDE 105 mmol/L (97-110); CREATININE 0.52 mg/dl (0.61-1.24); Estimated GFR > 60 mL/min (>60); GLUCOSE 96 mg/dl (70-220); POTASSIUM 3.9 mmol/L (3.5-5.1); SODIUM 140 mmol/L (135-144)
[2018-07-09 06:49] LABS: HEMOGLOBIN A1C 7.8 % (0-5.9)
[2018-07-09] MEDS: GABAPENTIN 300 MG CAP PO ×3 (08:06→20:38)
[2018-07-09] MEDS: HYDROCODONE/APAP (5/325) TAB PO ×2 (08:06→19:00)
[2018-07-09] MEDS: DOCUSATE SODIUM 100 MG CAP PO (08:06)
[2018-07-09] MEDS: LOSARTAN 50 MG TAB PO (08:07)
[2018-07-09] MEDS: ENOXAPARIN 40 MG/0.4 ML SYG SC (08:10)
[2018-07-09] MEDS: glipiZIDE 5 MG TAB PO ×2 (09:04→20:39)
[2018-07-09] MEDS: BACLOFEN 10 MG TAB PO (20:38)
[2018-07-09] MEDS: ATORVASTATIN 20 MG TAB PO (20:38)
[2018-07-10] MEDS: SOD CHLORIDE 0.9% 1,000 ML IV ×2 (02:59→08:35)
[2018-07-10 05:35] LABS: ADD MAN DIFF? NO
[2018-07-10 05:39] LABS: BASOPHILS % 0.2 % (0.0-2.0); EOSINOPHILS % 0.3 % (0.0-7.0); HEMATOCRIT 43.1 % (42.0-52.0); HEMOGLOBIN 14.1 g/dl (14.0-18.0); MEAN CORPUSCULAR HEMOGLOBIN 29.7 pg (29.0-33.0); MEAN CORPUSCULAR HGB CONC 32.7 g/dl (32.0-37.0); MEAN CORPUSCULAR VOLUME 90.9 fl (82.0-101.0); MONOCYTE # 1.2 10^3/ul (0.3-0.9); MONOCYTES % 8.8 % (0.0-11.0); NEUTROPHIL # 8.5 10^3/ul (1.6-7.5); NEUTROPHILS % 61.3 % (39.0-77.0); PLATELET COUNT 248 10^3/UL (140-415); RED BLOOD COUNT 4.74 10^6/ul (4.70-6.10); RED CELL DISTRIBUTION WIDTH 17.1 % (11.5-14.5)
[2018-07-10 05:39] LABS: WHITE BLOOD COUNT 13.8 10^3/ul (4.8-10.8)
[2018-07-10] MEDS: PIPER-TAZO 3.375 GM IV (PMX) 100 ML IVPB ×2 (06:10→14:00)
[2018-07-10] MEDS: LOSARTAN 50 MG TAB PO (08:29)
[2018-07-10] MEDS: GABAPENTIN 300 MG CAP PO ×2 (08:29→12:37)
[2018-07-10] MEDS: HYDROCODONE/APAP (5/325) TAB PO (08:29)
[2018-07-10] MEDS: glipiZIDE 5 MG TAB PO (08:30)
[2018-07-10] MEDS: ENOXAPARIN 40 MG/0.4 ML SYG SC (08:34)
== END 2018-07-10 14:50 | disposition home or self-care (01) | DRG 690 ==
LOC: E/R 07:58 → 6WM 10:55
DX: N39.0 Urinary tract infection, site not specified (principal); G82.20 Paraplegia, unspecified; F11.20 Opioid dependence, uncomplicated; E11.40 Type 2 diabetes mellitus with diabetic neuropathy, unspecified; N31.9 Neuromuscular dysfunction of bladder, unspecified; I10 Essential (primary) hypertension; F41.9 Anxiety disorder, unspecified; R00.0 Tachycardia, unspecified; E78.00 Pure hypercholesterolemia, unspecified; G89.4 Chronic pain syndrome; B96.20 Unspecified Escherichia coli [E. coli] as the cause of diseases classified elsewhere; E86.0 Dehydration; R33.8 Other retention of urine; Z79.84 Long term (current) use of oral hypoglycemic drugs; Z79.01 Long term (current) use of anticoagulants
CPT/HCPCS: 36415; 74176; 80048; 80053; 81001; 82962; 83036; 83605; 83690; 84484; 85025; 87040-91; 87086; 96361; 96374; 96375; 99285-25